=== PATIENT | male | born 1955 | race Caucasian/White ===

== ENCOUNTER 2019-04-15 06:00 | Day surgery (SDC) | payer BC, SELFPAY ==
[2019-04-15 06:29] VITALS: BP 126/66; PULSE 72; RESP 18; TEMP 36.8; O2SAT 97
[2019-04-15] MEDS: Lactated Ringers 1,000 ML 80 ML IV (06:50)
--- NOTE | 2019-04-15 07:20 | W.PM.HP.N ---
Date of service: 04/15/19 Time of Service: 07:20 History of Present Illness History of Present Illness Chief Complaint: right 5th digiti Quinti Varus/hammertoe deformity Narrative: progressive pain right 5th toe interfering with shoe gear, ambulation and daily activities. Poorly responsive to palliative care. [facility] Medical History GERD (gastroesophageal reflux disease) (Chronic) High blood pressure (Chronic) High cholesterol (Chronic) Hypomania (Acute) Idiopathic osteoarthritis (Acute) Psoriasis (Chronic) Shoulder joint pain (Acute) Toxic polyneuropathy (Acute) Surgical History History of colonoscopy (Chronic) Family History Other Diabetes Social History Smoking/Tobacco Use Status: Former Tobacco Use Alcohol Intake: never Drug use: Occasionally Substance use type: marijuana Do you feel safe at home: Yes Meds Home Medications and Allergies Home Medications Medication Instructions Recorded Confirmed Type omega 2-mvk-krp-fish oil [Fish Oil] 1 cap PO DAILY 04/14/19 04/15/19 History simvastatin 10 mg PO QHS 04/14/19 04/15/19 History Allergies Allergy/AdvReac Type Severity Reaction Status Date / Time No Known Allergies Allergy Unverified 04/15/19 06:27 Exam Narrative Exam Narrative: Head is normocephalic Eyes PERRLA Hearing is adequate Uvula is midline, airway looks accessible Heart has RRR, No gallops, rubs or murmurs heard Lung ocampo are clear Abdomen is soft, bs x 4 Peripheral pulses +1/4, CFT <3 secs, no edema Muscle gps 5/5 brenda Skeletal exam reveals a right 5th digiti quinti varus deformity with hypertrophic corn formation over the lateral aspect DIPJ region. Locally inflamed and very tender to palpation. Neuro: Grossly intact. Impressions: right 5th hammertoe deformity Plan: surgical repair right 5th toe. Risks and complications, alternative treatments reviewed, all questions answered. Informed consent obtained. Results Last Vital Signs Temp 36.8 C 04/15/19 06:29 Pulse 72 04/15/19 06:29 Resp 18 04/15/19 06:29 BP 126/66 04/15/19 06:29 Pulse Ox 97 04/15/19 06:29
[2019-04-15] MEDS: Lidocaine 1% Multi-Dose 50 ML VIAL (07:39)
[2019-04-15] MEDS: Bupivacaine 0.5% Pres-Free 30 ML VIAL (07:39)
[2019-04-15] MEDS: ceFAZolin 1 GM/50 ML BAG IVPB (07:39)
[2019-04-15] MEDS: Dexamethasone 4 MG/ML VIAL (07:50)
--- NOTE | 2019-04-15 08:08 | W.PM.DSUDISC ---
Discharge Plan Disposition Patient Disposition: HOME Condition: Good Discharge Details Reason For Visit: Correction painful right fifth hammertoe Attending Provider: dAarsh You Primary Care Provider: Judi Tabares Home Meds and New Rx's Prescriptions: No Action simvastatin 10 mg Tablet 10 mg PO QHS RF: 0 omega 8-bkb-kwl-fish oil [Fish Oil] 1,000 mg (120 mg-180 mg) Capsule 1 cap PO DAILY RF: 0 Discharge Instructions Activity:: Elevate Remove Dressings/Wound Care:: Do Not Remove Shower/Bathe:: Cover Diet:: Normal Diet Discharge Orders Discharge Orders: Discharge Order (Routine); Ordered 04/15/19 Ordered By: Adarsh You DS: Diagnosis Discharge Diagnosis (1) Hammertoe of right foot: Start date: 04/15/19 Start time: 08:09 Status: Acute Asessment and Plan: Status post arthroplasty right fifth toe for correction of symptomatic hammertoe
[2019-04-15 08:40] VITALS: BP 143/78; PULSE 65; RESP 18; TEMP 36.6; O2SAT 99
--- NOTE | 2019-04-15 10:25 | ROE_ITS ---
DATE OF PROCEDURE: April 15, 2019 PREOPERATIVE DIAGNOSIS: Symptomatic right fifth hammertoe deformity. POSTOPERATIVE DIAGNOSIS: Same. PROCEDURE: Arthroplasty right fifth toe. SURGEON: Seferino AraizaPPatricia. ANESTHESIA: IV general with local block fifth toe utilizing 6 cc's 50:50 mixture 1% Lidocaine plain, 0.5% Marcaine plain. ANESTHESIA PROVIDER: Kolby Mcdonald CRNA OPERATIVE INDICATIONS: 63-year-old male with chronic pain associated with a digiti quinti varus renetta ertoe deformity of the right fifth digit. Pain has been debilitating, interfering with shoe gear, wo rk, daily activities, poorly responsive to nonoperative treatments. German understands risks and compl ications of surgery pertaining to pain, scarring, infection, shortening of the digit, swelling of the toe, the potential for persistent corn formation and pain requiring revisional procedures. Informed consent has been obtained. No promises made to the final outcome of surgery. REPORT OF OPERATION: German was brought to the operative suite and placed in the supine position where the right foot is prepped and draped in the usual sterile podiatric fashion. A time-out was perform ed. The right fifth toe was anesthetized with 6 cc's of a 50:50 mixture of 1% Lidocaine plain, 0.5% Marcaine plain. Attention was directed to the right foot where a well-padded ankle tourniquet was in flated to 250 mmHg. Attention was directed to the right fifth toe where a teardrop incision was placed horizontally over the proximal and phalangeal joint with the wider portion of the base medial. The incision was comple kim and a teardrop skin wedge excised; soft tissue mobilization was performed. A transverse tenotomy capsulotomy was performed at the fifth PIPJ. With a #15 scalpel the medial and lateral collaterals were released from the joint and the proximal phalangeal head delivered into the wound. Degenerative changes of the joint surface were appreciated. With double-action bone-cutting forceps the proximal phalangeal head was resected at its surgical neck. All rough and bony edges were rasped smooth. Ev aluation revealed good relaxation of the fifth toe. Once again irrigation was performed. The extens or tendon was then repaired end-to-end, reaching from the proximal medial side of the tendon to the d istal lateral so as to de-rotate or internally rotate the fifth toe. Good correction was appreciated . This was accomplished with simple interrupted suture #3-0 Vicryl. A second stitch was then insert ed to further strengthen the tendon repair. The skin was then closed with simple interrupted suture #4-0 nylon. Good correction of the fifth toe was appreciated. The base of the fifth toe was injecte d with 4 mg of dexamethasone phosphate. Xeroform, gauze fluff compression dressings applied. The to urniquet was released at eleven minutes with vascularity returning to all toes immediately. German lef t the OR with vital signs stable, vascular status intact, sharp and sponge counts were correct. He will be followed by me in the office next week.
== END 2019-04-15 09:05 | disposition home or self-care (01) ==
PROVIDERS: PCP Family Medicine; Visit Provider Podiatrist
PROC: (CPT 28285; principal; 2019-04-15 07:30)
DX: M20.41 Other hammer toe(s) (acquired), right foot (principal); G89.29 Other chronic pain; M79.674 Pain in right toe(s)
CPT/HCPCS: 28285; 99223; J0690; J1100; J2001; J2704